=== PATIENT | male | born 1970 | race Caucasian/White ===

== ENCOUNTER 2018-07-06 18:44 | Emergency (ER) | payer OTHER, SELFPAY ==
[2018-07-06 18:47] VITALS: BP 127/85; PULSE 77; RESP 20; TEMP 36.6; O2SAT 98
[2018-07-06 20:26] VITALS: BP 128/92; PULSE 83; RESP 19; O2SAT 99
--- NOTE | 2018-07-06 20:54 | ED.EPISTAXIS ---
HPI - Epistaxis General Chief complaint: Nasal Problem Stated complaint: NON STOP NOSE BLEED Time Seen by Provider: 07/06/18 19:05 Source: patient Mode of arrival: ambulatory Limitations: no limitations History of Present Illness HPI Narrative: 48-year-old male nonsmoker presents with a chief complaint of a spontaneous right-sided nosebleed. He denies any injury and is not dizzy nor weak or lightheaded. He denies the use of blood thinners. He has recently had upper respiratory type symptoms and has been using [id number] cough and cold medicine. He states that it started out of nowhere and bled profusely prior to his arrival. It seems to have improved with the application of pressure and pinching his nostrils. He has no chest pain or shortness of breath. He is not dizzy nor weak or lightheaded. MD complaint: epistaxis Location: right nostril Onset (ago): hour(s) Duration: now resolved Associated symptoms: sinus pain Treatment prior to arrival: nose pinching and head leaned forward Related Data Home Medications Medication Instructions Recorded Confirmed albuterol sulfate 1 puff INHALATION Q4-6H PRN 07/06/18 07/06/18 Allergies Allergy/AdvReac Type Severity Reaction Status Date / Time No Known Drug Allergies Allergy Verified 07/06/18 18:48 Review of Systems Constitutional Denies chills, Denies fever(s), Denies lethargy and Denies weakness Eyes Denies change in vision, Denies eye discharge, Denies irritation and Denies loss of vision ENT Ears, Nose, Mouth, and Throat: Denies change in voice, Reports epistaxis, Denies neck pain and Denies sore throat Cardiovascular Denies chest pain, Denies irregular heart rhythm, Denies lightheadedness, Denies palpitations, Denies dyspnea, Denies dyspnea on exertion and Denies orthopnea Respiratory Denies cough, Denies dyspnea, Denies dyspnea on exertion and Denies wheezing Gastrointestinal Gastrointestinal: Denies abdominal pain, Denies change in bowel habits, Denies diarrhea, Denies nausea and Denies vomiting Genitourinary Denies hematuria, Denies flank pain, Denies urinary incontinence and Denies urinary urgency Musculoskeletal Denies neck pain Integumentary/Breasts Denies pruritus, Denies erythema, Denies rash and Denies wounds Neurologic Denies confusion, Denies loss of vision and Denies weakness Psychiatric Denies anxiety, Denies confusion, Denies depression, Denies homicidal ideation and Denies suicidal ideation Endocrine Denies palpitations Hematologic/Lymphatic Denies easy bruising Allergic/Immunologic Denies wheezing PFSH Social History Smoking Status: Never smoker Social History Smoking Status: Never smoker Exam Narrative Exam Narrative: GEN: AOx3 and in mild distress, pleasant, a bit anxious EYES: Pupils are equal, round, and reactive to light and accommodation. Extraoccular muscles are intact bilaterally. There is no subconjunctival hemorrhage or exudate. ENT: Fresh clots noted right knee air, no active bleeding CHEST: Lungs are clear to auscultation bilaterally and free of wheezes, rales, or rhonchi. Heart rate is regular rhythm, there are no murmurs, clicks, rubs, or gallops. There is no chest wall tenderness. ABD: Abdomen is soft and nontender. There is no guarding or rebound. Bowel sounds are normal in all 4 quadrants. There is no mass or organomegaly. EXT: Full painless ROM of all extremities with no loss of sensation or strength. SKIN: Warm, pink, and dry. No erythema or rash Initial Vital Signs Initial Vital Signs: Vital Signs Temperature 97.9 F 07/06/18 18:47 Pulse Rate 77 07/06/18 18:47 Respiratory Rate 20 07/06/18 18:47 Blood Pressure 127/85 07/06/18 18:47 Pulse Oximetry 98 07/06/18 18:47 Procedures Epistaxis Control Time Out Performed: No Nostril: right Nose Prepped With: oxymetazoline Direct Inspection: yes Clots Removed by: suction Cautery Used: none Course Vital Signs - 8 hr 07/06/18 18:47 07/06/18 20:26 Temperature 97.9 F Pulse Rate 77 83 Respiratory Rate 20 19 Blood Pressure 127/85 Blood Pressure [Left Arm] 128/92 H Pulse Oximetry 98 99 MDM - Epistaxis MDM Narrative Medical decision making narrative: 48-year-old male, no blood thinners, no injury, no active bleeding and nonvisualized site. The observed for the a lengthy period of time and no ongoing bleeding. Okay for discharge. Return precautions given and verbalized understanding by patient Discharge Plan Departure Patient Disposition: Home Clinical Impression: Epistaxis Discharge Date/Time: 07/06/18 21:33 Interventions: ED Discharge Assessment Last Done: 07/06/18 21:33 Instructions: DI for Nosebleed Activity Restrictions/Additional Instructions: *You have been diagnosed with [ acute anterior epistaxis ] *What to do: * do not blow your nose, stick your finger in her nose, or disturb nose for the next 24 hr. If you must sneeze please sneeze out your mouth like we talked about *Follow up with your primary care provider or ENT doctor in 2-3 days, call for an appointment. Let them know you were seen in the Emergency Department and that we ask that you be seen in follow up *Return to ER if you should have any new, worsening or concerning symptoms * if you are bleeding starts again at home please place a portion of a cotton ball in your nostril and squirt some of the Afrin you were given in your nose. Apply the nose clamp and uses a watch or o'clock to time yourself for 15 min. At the end 15 min recheck for bleeding, if you continue to bleed please repeat the process for another 15 min. If at the end of 30 min you still have bleeding you should return to the emergency department Prescriptions: No Action albuterol sulfate 90 mcg/actuation Hfa Aerosol Inhaler 1 puff INHALATION Q4-6H PRN (Reason: dyspnea) RF: 0 Referrals: Jensen Niño MD [Physician] -
== END 2018-07-06 21:33 | disposition home or self-care (01) ==
PROVIDERS: Emergency Provider Emergency Medicine
DX: R04.0 Epistaxis (principal)
CPT/HCPCS: 99282

== ENCOUNTER 2018-07-06 22:00 | Emergency (ER) | payer OTHER, SELFPAY ==
[2018-07-06 22:09] VITALS: BP 142/99; PULSE 115; RESP 18; TEMP 36.7; O2SAT 97; BMI 33.0
[2018-07-06 23:00] VITALS: BP 95/71; PULSE 78; RESP 18; O2SAT 91
[2018-07-06 23:00] LABS: Add Manual Diff / Slide Review NO; Basophils Absolute Auto 100 /uL (0-100); Eosinophils Absolute Auto 500 /uL (0-450); Hemoglobin 16.6 g/dL (13.5-17.5); Lymphocytes Absolute Auto 4400 /uL (1100-4500); Lymphocytes Percent Auto 40.9 % (25-40); Mean Corpuscular HGB Conc 35.2 % (30-36); Mean Corpuscular Hemoglobin 31.6 PG (26-34); Mean Corpuscular Volume 89.8 fL (80-100); Monocytes Absolute Auto 1600 /uL (0-900); Monocytes Percent Auto 14.7 % (3-14); Neutrophils Absolute Auto 4100 /uL (1500-7000); Neutrophils Percent Auto 38.4 % (50-75); Platelet Count 210 X10^3/uL (150-400); Red Blood Cell Count 5.24 X10^6/uL (4.5-5.9); Red Cell Distribution Width 13.3 % (11.6-14.8); White Blood Cell Count 10.7 X10^3/uL (4.5-11.0)
--- NOTE | 2018-07-06 23:03 | PC.NURSE ---
approx 2240 pt c/o going to pass out, appears panicked, bedside, placed on bus driver/monitor, IV placed per order, pt appeared to have vagal response, briefly unresponsive with normal resp rate/depth, returned to baseline mentation
[2018-07-06 23:11] LABS: Blood Urea Nitrogen 25 mg/dL (9-20); Calcium 9.5 mg/dL (8.4-10.2); Carbon Dioxide 20 mmol/L (22-32); Chloride 107 mmol/L (98-107); Estimated Glomerular Filt Rate > 60.0 mL/min (>60); Glucose 128 mg/dL (70-100); HEMOLYSIS 28 (0-50); Potassium 4.5 mmol/L (3.4-5.1); Sodium 139 mmol/L (137-145)
[2018-07-06 23:34] LABS: INR 1.1 (0.9-1.3); Prothrombin Time 12.4 SECONDS (10.1-12.7)
--- NOTE | 2018-07-06 23:36 | ED_ITS ---
HPI - Epistaxis General Chief complaint: Nasal Problem Stated complaint: NOSE BLEED NON STOP Time Seen by Provider: 07/06/18 22:05 Source: patient and family Mode of arrival: ambulatory Limitations: no limitations History of Present Illness HPI Narrative: 48-year-old male nonsmoker returns for the 2nd time this evening with his in the chief complaint of a significant epistaxis in the absence of any injury. He has recently had an upper respiratory infection has been taking cough and cold medicines. He was seen earlier and his bleeding had stopped. There was no evidence of the site or any ongoing bleeding. Soon after his departure he had something that he states felt like it gave way and then he developed significant bleeding, even more intense than the 1st episode. Again, he takes no blood thinners and denies trauma MD complaint: epistaxis Location: right nostril Onset (ago): minute(s) Duration: constant Context: history of previous Associated symptoms: headache and sinus pain Treatment prior to arrival: nose pinching and head leaned forward Related Data Home Medications Medication Instructions Recorded Confirmed albuterol sulfate 1 puff INHALATION Q4-6H PRN 07/06/18 07/06/18 Allergies Allergy/AdvReac Type Severity Reaction Status Date / Time No Known Drug Allergies Allergy Verified 07/06/18 18:48 Review of Systems Constitutional Denies chills, Denies fever(s), Denies lethargy and Denies weakness Eyes Denies change in vision, Denies eye discharge, Denies irritation and Denies loss of vision ENT Ears, Nose, Mouth, and Throat: Denies change in voice, Reports epistaxis, Denies neck pain and Denies sore throat Cardiovascular Denies chest pain, Denies irregular heart rhythm, Denies lightheadedness, Denies palpitations, Denies dyspnea, Denies dyspnea on exertion and Denies orthopnea Respiratory Denies cough, Denies dyspnea, Denies dyspnea on exertion and Denies wheezing Gastrointestinal Gastrointestinal: Denies abdominal pain, Denies change in bowel habits, Denies diarrhea, Denies nausea and Denies vomiting Genitourinary Denies hematuria, Denies flank pain, Denies urinary incontinence and Denies urinary urgency Musculoskeletal Denies neck pain Integumentary/Breasts Denies pruritus, Denies erythema, Denies rash and Denies wounds Neurologic Denies confusion, Denies loss of vision and Denies weakness Psychiatric Denies anxiety, Denies confusion, Denies depression, Denies homicidal ideation a nd Denies suicidal ideation Endocrine Denies palpitations Hematologic/Lymphatic Denies easy bruising Allergic/Immunologic Denies wheezing PFSH Social History Smoking Status: Never smoker Social History Smoking Status: Never smoker Exam Narrative Exam Narrative: GEN: 48-year-old male appears stated age, in obvious distress, significant bleeding, actively pinching his nose EYES: Pupils are equal, round, and reactive to light and accommodation. Extraoccular muscles are intact bilaterally. There is no subconjunctival hemorrhage or exudate. ENT: Significant bright red bleeding from right nostril, site is not visualized. CHEST: Lungs are clear to auscultation bilaterally and free of wheezes, rales, or rhonchi. Heart rate is regular rhythm, there are no murmurs, clicks, rubs, or gallops. There is no chest wall tenderness. ABD: Abdomen is soft and nontender. There is no guarding or rebound. Bowel sounds are normal in all 4 quadrants. There is no mass or organomegaly. EXT: Full painless ROM of all extremities with no loss of sensation or strength. SKIN: Warm, pink, and dry. No erythema or rash Initial Vital Signs Initial Vital Signs: Vital Signs Temperature 98.0 F 07/06/18 22:09 Pulse Rate 115 H 07/06/18 22:09 Respiratory Rate 18 07/06/18 22:09 Blood Pressure 142/99 H 07/06/18 22:09 Pulse Oximetry 97 07/06/18 22:09 Procedures Epistaxis Control Time Out Performed: No Nostril: right Nose Prepped With: oxymetazoline Direct Inspection: unable to visualize Clots Removed by: suction Cautery Used: none Device Inserted: hemostatic balloon Patient Tolerated Procedure: well Course Course Narrative: Hemostasis was achieved with bilateral rhino rockets but after about 15-20 minutes the patient started becoming quite anxious. He states he tried to take a breath in his nose, which is normal for him and being unable to do so made him panicky. He started feeling dizzy, weak and lightheaded and insisted the nasal balloons were removed. He was near syncopal and maybe even syncopal for a brief period of time. IV was placed and blood was drawn, he quickly returned to baseline after an apparent vagal event Orders Ordered: ED Orders 07/06/18 22:42 EKG-12 Lead Stat 07/06/18 22:49 Basic Metabolic Panel Stat Complete Blood Count AUTO DIFF Stat Type and Screen Stat 07/06/18 23:20 Partial Thromboplastin Time Stat Prothrombin Time INR Stat Discontinued Medications Sodium Chloride (Normal Saline 0.9%) 1,000 mls @ 1,000 mls/hr IV BOLUS ONE Stop: 07/07/18 02:51 Last Infusion: 07/07/18 01:57 Dose: 0 mls/hr Admin: 07/07/18 00:00 Dose: 1,000 mls/hr Reevaluation(s) Reevaluation #1: Patient observed for nearly 2 hr after initial event. He remained calm with stable vital signs and unremarkable labs. Consultations Consultation #1: Case discussed with ear nose and throat and we agree that the most appropriate course of action is replacement of rhino rocket and follow up in 3 days, however patient refuses this despite discussions of risks and benefits. ENT suggests that a backup plan would be to instill a cotton swab lab other day and petroleum jelly to occlude the airway for the nostril and allow the blood vessel to reestablish itself. Patient accepts this alternative and acknowledges that if he returns we will need to replace rhino rockets. Vital Signs - 8 hr 07/06/18 22:09 07/06/18 23:00 07/07/18 00:38 Temperature 98.0 F Pulse Rate 115 H 78 86 Respiratory Rate 18 18 15 Blood Pressure 142/99 H Blood Pressure [Left Arm] 95/71 130/80 Pulse Oximetry 97 91 100 07/07/18 01:58 Temperature Pulse Rate 70 Respiratory Rate 16 Blood Pressure 124/80 Blood Pressure [Left Arm] Pulse Oximetry 98 MDM - Epistaxis Lab Data Result diagrams: 07/06/18 22:49 07/06/18 22:49 Lab Results 07/06/18 07/06/18 07/06/18 Range/Units 22:49 22:49 22:49 WBC 10.7 (4.5-11.0) X10^3/uL RBC 5.24 (4.5-5.9) X10^6/uL Hgb 16.6 (13.5-17.5) g/dL Hct 47.0 (41-53) % MCV 89.8 (80-100) fL MCH 31.6 (26-34) PG MCHC 35.2 (30-36) % RDW 13.3 (11.6-14.8) % Plt Count 210 (150-400) X10^3/uL Neut % (Auto) 38.4 L (50-75) % Lymph % (Auto) 40.9 H (25-40) % Shasta % (Auto) 14.7 H (3-14) % Eos % (Auto) 5.0 H (2-4) % Baso % (Auto) 1.0 (0-2) % Neut # (Auto) 4100 (5749-5800) /uL Lymph # (Auto) 4400 (6388-2839) /uL Shasta # (Auto) 1600 H (0-900) /uL Eos # (Auto) 500 H (0-450) /uL Baso # (Auto) 100 (0-100) /uL PT (10.1-12.7) SECONDS INR (0.9-1.3) APTT (26.4-36.2) SECONDS Sodium 139 (137-145) mmol/L Potassium 4.5 (3.4-5.1) mmol/L Chloride 107 (98-107) mmol/L Carbon Dioxide 20 L (22-32) mmol/L BUN 25 H (9-20) mg/dL Creatinine 1.00 (0.66-1.25) mg/dL Estimated GFR > 60.0 (>60) mL/min BUN/Creatinine Ratio 25.0 H (6-22) Glucose 128 H (70-100) mg/dL Calcium 9.5 (8.4-10.2) mg/dL Blood Type A Positive Antibody Screen Negative 07/06/18 Range/Units 23:20 WBC (4.5-11.0) X10^3/uL RBC (4.5-5.9) X10^6/uL Hgb (13.5-17.5) g/dL Hct (41-53) % MCV (80-100) fL MCH (26-34) PG MCHC (30-36) % RDW (11.6-14.8) % Plt Count (150-400) X10^3/uL Neut % (Auto) (50-75) % Lymph % (Auto) (25-40) % Shasta % (Auto) (3-14) % Eos % (Auto) (2-4) % Baso % (Auto) (0-2) % Neut # (Auto) (3257-7987) /uL Lymph # (Auto) (0265-0281) /uL Shasta # (Auto) (0-900) /uL Eos # (Auto) (0-450) /uL Baso # (Auto) (0-100) /uL PT 12.4 (10.1-12.7) SECONDS INR 1.1 (0.9-1.3) APTT 23 L (26.4-36.2) SECONDS Sodium (137-145) mmol/L Potassium (3.4-5.1) mmol/L Chloride (98-107) mmol/L Carbon Dioxide (22-32) mmol/L BUN (9-20) mg/dL Creatinine (0.66-1.25) mg/dL Estimated GFR (>60) mL/min BUN/Creatinine Ratio (6-22) Glucose (70-100) mg/dL Calcium (8.4-10.2) mg/dL Blood Type Antibody Screen Discharge Plan Departure Patient Disposition: Home Clinical Impression: Epistaxis Discharge Date/Time: 07/07/18 02:02 Interventions: ED Discharge Assessment Last Done: 07/07/18 01:58 Instructions: DI for Nosebleed Activity Restrictions/Additional Instructions: *You have been diagnosed with [ acute anterior epistaxis ] *What to do: * do not blow your nose, stick your finger in her nose, or disturb nose for the next 24 hr. If you must sneeze please sneeze out your mouth like we talked about *Follow up with your primary care provider or ENT doctor in 2-3 days, call for an appointment. Let them know you were seen in the Emergency Department and that we ask that you be seen in follow up *Return to ER if you should have any new, worsening or concerning symptoms * if you are bleeding starts again at home please place a portion of a cotton ball in your nostril and squirt some of the Afrin you were given in your nose. Apply the nose clamp and uses a watch or o'clock to time yourself for 15 min. At the end 15 min recheck for bleeding, if you continue to bleed please repeat the process for another 15 min. If at the end of 30 min you still have bleeding you should return to the emergency department Prescriptions: No Action albuterol sulfate 90 mcg/actuation Hfa Aerosol Inhaler 1 puff INHALATION Q4-6H PRN (Reason: dyspnea) RF: 0 Referrals: Cedric Suero MD [Physician] -
[2018-07-06 23:37] LABS: PTT Partial Thromboplastin Tim 23 SECONDS (26.4-36.2)
[2018-07-07] MEDS: SODIUM CHLORIDE 0.9% 1,000 ML 1000 ML IV
[2018-07-07 00:38] VITALS: BP 130/80; PULSE 86; RESP 15; O2SAT 100
[2018-07-07 01:58] VITALS: BP 124/80; PULSE 70; RESP 16; O2SAT 98
== END 2018-07-07 02:02 | disposition home or self-care (01) ==
PROVIDERS: Emergency Provider Emergency Medicine
DX: R04.0 Epistaxis (principal)
CPT/HCPCS: 30905; 36591; 80048; 85025; 85610; 85730; 86850; 86900; 86901; 93005; 93010; 96360; 96361; 99282; 99283; 99284

== ENCOUNTER 2019-06-20 10:04 | Emergency (ER) | payer OTHER, SELFPAY ==
[2019-06-20 10:42] VITALS: BP 144/99; PULSE 79; RESP 18; TEMP 36.8; O2SAT 97; BMI 33.0
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
== END 2019-06-20 12:27 | disposition home or self-care (01) ==
PROVIDERS: Emergency Provider Nurse Practitioner; PCP Physician Assistant
DX: L25.3 Unspecified contact dermatitis due to other chemical products (principal)
CPT/HCPCS: 99282

== ENCOUNTER → 2020-02-21 13:18 | Outpatient (CLI) | payer OTHER, SELFPAY ==
[2020-02-22 10:23] LABS: COVID19 Sendout Not Detected (Not Detect)
== END ==
PROVIDERS: PCP Physician Assistant; Visit Provider Physician Assistant
DX: Z11.59 Encounter for screening for other viral diseases (principal)
CPT/HCPCS: 87635

== ENCOUNTER 2020-02-23 09:03 | Day surgery (SDC) | payer OTHER, SELFPAY ==
--- NOTE | 2020-02-23 | PATH_ITS ---
[facility] Accession Number: [id number] . 01 Material submitted: . PART A: cecum - CECAL POLYPS PART B: colon - ASCENDING COLON POLYPS . 01 Clinical history: . A: CECAL POLYPS (2) B: ASCENDING COLON POLYPS (2) . 02 Diagnosis: A. Cecum, Polyps: Tubular adenoma x2. . B. Ascending Colon, Polyps: Tubular adenoma x2. MRV 02/25/2020 1032 Local . 02 Electronically signed: . Adolfo Mireles MD, PhD, Pathologist NPI- [id number] . 01 Gross description: . A. Received in formalin, labeled cecal polyps, and consists of two weinstein fragments of soft tissue measuring 0.6 x 0.5 x 0.2 cm in aggregate. The specimen is entirely submitted in cassette A1. B. Received in formalin, labeled ascending colon polyps, and consists of two weinstein-pink fragments of soft tissue measuring 0.5 x 0.4 x 0.2 cm in aggregate. The specimen is entirely submitted in cassette B1. ([id number]) /MRV 02/24/2020 1104 Local . 02 Pathologist provided ICD-10: D12.0, D12.2 . 02 CPT . 752194, [id number] Performed at: 01 [facility] [address], [place], [place] [id number] MD Marek Gonzales MD Phone: [phone] Performed at: 02 [facility] [address] [place], [place] [id number] MD Wanda Michele MD Phone: [phone]
--- NOTE | 2020-02-23 07:59 | PM.HP.1 ---
History of Present Illness History of Present Illness Date Patient Seen: 02/23/20 Chief complaint: SCREENING COLONOSCOPY Narrative: 50-year-old male here for colon cancer screening. There is no family history of colon cancer or colon polyps. Patient History Medical History (Updated 07/05/19 @ 00:00 by ) No significant medical problems (Acute) Family & Social History Tobacco & Substance use: Smoking Status Never smoker alcohol intake frequency a few times a month Substance Use Type does not use Meds Home Medications and Allergies Home Medications Medication Instructions Recorded Confirmed Type albuterol sulfate 1 puff INHALATION Q4-6H PRN 07/06/18 02/23/20 History Allergies Allergy/AdvReac Type Severity Reaction Status Date / Time No Known Drug Allergies Allergy Verified 02/23/20 09:33 Exam Narrative Exam Narrative: General: Patient is obese, not in apparent distress Cardiovascular: Regular rate and rhythm, no murmurs, rubs, or gallops; no evidence of edema; no palpable abdominal aortic aneurysm Gastrointestinal: Normoactive bowel sounds, soft, nontender, nondistended, no rebound tenderness, no hepatosplenomegaly, no evidence of hernia Assessment & Plan Assessment & Plan narrative: 50-year-old male who is at average risk for colon cancer presents for screening by means of colonoscopy Regarding the procedure(s), the risks and potential complications, benefits, and alternatives (including not doing the procedure) were discussed with the patient. The risks include but are not limited to bleeding, splenic injury, infection, perforation which may require surgical intervention, missed lesions, and adverse reactions to sedative medicines. After a question and answer period, the patient agreed to proceed with the procedure(s) and gives informed consent.
[2020-02-23] MEDS: SODIUM CHLORIDE 0.9% 1,000 ML 70 ML IV (09:15)
[2020-02-23 09:21] VITALS: BP 123/79; PULSE 61; RESP 16; TEMP 36.6; O2SAT 96
--- NOTE | 2020-02-23 09:43 | P.OP.ENDO_ITS ---
Operative Date/Time/Diagnoses Date of procedure: 02/23/20 Procedure Notes Procedure in detail: Surgeon: Michael Orta MD Procedure: Colonoscopy with polypectomy Preoperative diagnosis: Colon cancer screening Postoperative diagnosis: Colon polyps x4 status post polypectomy, grade 2 i nternal hemorrhoid Medications: Conscious sedation using 4 mg IV of Midazolam and 100 mcg IV of Fentanyl Preanesthesia Assessment An H and P was performed/updated and the Px?s ASA class is 2. The procedure was discussed in detail with the patient. The potential risks and complications including infection, bleeding, missed lesions, perforation, need for surgery in case of perforation, prolonged hospital stay, and were explained. A brief question and answer period was allotted and once all questions were answered, informed consent was obtained. The patient was brought back to the procedure room and placed on standard monitoring. The patient?s vital signs were monitored continuously throughout the entire procedure. Prior to starting, a timeout was performed to confirm the patient?s identity, allergies, medications, and procedure. Procedure in detail The patient was placed in left lateral decubitus position and once adequate sedation was obtained a KELLY was performed. The digital rectal examination did not reveal any palpable lesions. The tip of the colonoscope was placed in the anal canal and advanced without difficulty all the way to the cecum which was identified by the appendiceal orifice and the ileocecal valve. The terminal ileum was intubated for a distance of 5 cm from the ileocecal valve and the mucosa was normal. The scope was brought back into the cecum and careful examination of all hinds of the colon was performed with irrigation of any residual stool. In the cecum, there was note of a 2 mm sessile polyp which was removed by means of cold Jumbo forceps. Resection and retrieval was complete with minimal bleeding In the cecum, there was note of a 4 mm sessile polyp which was removed by means of cold snare. Resection and retrieval was complete with minimal bleeding In the ascending colon, there was note of a 2 mm sessile polyp which was removed by means of cold Jumbo forceps. Resection and retrieval was complete with minimal bleeding In the ascending colon, there was note of a 4 mm sessile polyp which was removed by means of cold Jumbo forceps. Resection and retrieval was complete with minimal bleeding Retroflexion was performed in the rectum which revealed grade 2 internal hemorrhoids The patient tolerated the procedure well and will be brought back to the recovery area to be discharged once criteria are met. The prep was judged to be good and adequate to identify polyps less than 5 mm. The withdrawal time was 11 minutes. The total physician intraservice time was 16 minutes. Complications There were no complications and estimated blood loss was minimal. Recommendations: Resume previous diet Continue outPx medications Follow up pathology results Repeat colonoscopy in 3 years, this may change depending on pathology results An emergency contact number was given to the patient for any complications related to the procedure
[2020-02-23] MEDS: fentaNYL 250 MCG/5 ML INJ IV (10:05)
[2020-02-23] MEDS: MIDAZOLAM 5 MG/5 ML VIAL IV (10:05)
[2020-02-23 10:07] VITALS: BP 117/80; PULSE 64; RESP 12; TEMP 36.3; O2SAT 94
[2020-02-23 10:12] VITALS: BP 116/75; PULSE 71; RESP 11; O2SAT 97
[2020-02-23 10:18] VITALS: BP 117/79; PULSE 65; RESP 16; TEMP 36.4; O2SAT 97
[2020-02-23 10:21] VITALS: BP 121/79; PULSE 66; RESP 17; TEMP 36.4; O2SAT 97
[2020-02-23 10:29] VITALS: BP 127/83; PULSE 68; RESP 16; TEMP 36.6; O2SAT 97
--- NOTE | 2020-02-23 10:38 | SUR.PHASEII ---
pt given d/c instructions. pt states he understands d/c instructions. pt d/mireya with his .
== END 2020-02-23 10:39 | disposition home or self-care (01) ==
PROVIDERS: PCP Physician Assistant; Referring Provider Internal Medicine Gastroenterology; Visit Provider Internal Medicine Gastroenterology
PROC: 0DJD8ZZ Inspection of Lower Intestinal Tract, Via Natural or Artificial Opening Endoscopic (ICD-10-PCS; CPT 45378; principal; 2020-02-23 10:00)
DX: Z12.11 Encounter for screening for malignant neoplasm of colon (principal); K64.1 Second degree hemorrhoids; D12.0 Benign neoplasm of cecum; D12.3 Benign neoplasm of transverse colon
CPT/HCPCS: 45385; 45380; J2250; J3010

== ENCOUNTER → 2020-07-25 06:49 | Outpatient (CLI) | payer OTHER, SELFPAY | PROVIDERS: Referring Provider Physician Assistant; Visit Provider Physician Assistant | DX: M25.511 Pain in right shoulder (principal); Z53.20 Procedure and treatment not carried out because of patient's decision for unspecified reasons ==

== ENCOUNTER → 2022-05-29 09:46 | Outpatient (CLI) | payer OTHER, SELFPAY ==
[2022-05-29 10:30] LABS: Add Manual Diff / Slide Review NO; Basophils Absolute Auto 0 /uL (0-100); Basophils Percent Auto 0.6 % (0-2); Eosinophils Absolute Auto 100 /uL (0-450); Eosinophils Percent Auto 1.8 % (2-4); Hematocrit 46.3 % (41-53); Lymphocytes Absolute Auto 1800 /uL (1100-4500); Lymphocytes Percent Auto 32.7 % (25-40); Mean Corpuscular HGB Conc 34.6 % (30-36); Mean Corpuscular Hemoglobin 30.7 PG (26-34); Mean Corpuscular Volume 88.6 fL (80-100); Monocytes Absolute Auto 500 /uL (0-900); Monocytes Percent Auto 8.4 % (3-14); Neutrophils Absolute Auto 3100 /uL (1500-7000); Neutrophils Percent Auto 56.5 % (50-75); Platelet Count 186 X10^3/uL (150-400); Red Blood Cell Count 5.22 X10^6/uL (4.5-5.9); White Blood Cell Count 5.5 X10^3/uL (4.5-11.0)
[2022-05-29 10:36] LABS: Hemoglobin A1C% w Est Avg Glu 5.3 % (4.0-6.0)
[2022-05-29 10:50] LABS: Alanine Aminotransferase 49 IU/L (<50); Alkaline Phosphatase 48 U/L (38-126); Aspartate Aminotransferase 32 IU/L (17-59); Bilirubin Total 1.1 mg/dL (0.2-1.3); Blood Urea Nitrogen 18 mg/dL (9-20); Calcium 9.1 mg/dL (8.4-10.2); Carbon Dioxide 29 mmol/L (22-32); Chloride 103 mmol/L (98-107); Cholesterol 230 mg/dL (140-199); Estimated Glomerular Filt Rate > 60 mL/min (>60); Glucose 86 mg/dL (70-100); HDL Cholesterol 46 mg/dL (40-60); LDL Cholesterol Calculated 160 mg/dL (<100); Potassium 4.3 mmol/L (3.4-5.1); Sodium 139 mmol/L (137-145); Total Protein 8.1 g/dL (6.3-8.2); Triglycerides 118 mg/dL (35-150)
[2022-05-29 11:21] LABS: Prostate Specific Antigen 3.28 ng/mL (0.10-4.00)
[2022-05-31 16:44] LABS: Albumin 4.6 g/dL (3.5-5.0); Albumin Globulin Ratio 1.3 (1.0-2.8); Globulin 3.5 g/dL (1.7-4.1); HEMOLYSIS 17 (0-50)
== END ==
PROVIDERS: PCP Family Medicine; Referring Provider Family Medicine; Visit Provider Family Medicine
DX: Z00.00 Encounter for general adult medical examination without abnormal findings (principal); R03.0 Elevated blood-pressure reading, without diagnosis of hypertension
CPT/HCPCS: 36415; 80053; 80061; 83036; 84153; 85025

== ENCOUNTER → 2023-06-03 13:52 | Outpatient (CLI) | payer OTHER, SELFPAY ==
[2023-06-03 14:18] LABS: Add Manual Diff / Slide Review NO; Basophils Absolute Auto 0 /uL (0-100); Basophils Percent Auto 0.6 % (0-2); Eosinophils Absolute Auto 100 /uL (0-450); Eosinophils Percent Auto 1.4 % (2-4); Hematocrit 46.3 % (41-53); Hemoglobin 16.4 g/dL (13.5-17.5); Lymphocytes Absolute Auto 2300 /uL (1100-4500); Lymphocytes Percent Auto 32.2 % (25-40); Mean Corpuscular HGB Conc 35.5 % (30-36); Mean Corpuscular Hemoglobin 31.4 PG (26-34); Mean Corpuscular Volume 88.5 fL (80-100); Monocytes Absolute Auto 600 /uL (0-900); Monocytes Percent Auto 7.9 % (3-14); Neutrophils Absolute Auto 4100 /uL (1500-7000); Neutrophils Percent Auto 57.9 % (50-75); Platelet Count 217 X10^3/uL (150-400); Red Blood Cell Count 5.23 X10^6/uL (4.5-5.9); Red Cell Distribution Width 13.3 % (11.6-14.8); White Blood Cell Count 7.1 X10^3/uL (4.5-11.0)
[2023-06-03 14:27] LABS: Hemoglobin A1C% w Est Avg Glu 5.3 % (4.0-6.0)
[2023-06-03 14:48] LABS: Alanine Aminotransferase 52 IU/L (<50); Albumin 4.5 g/dL (3.5-5.0); Albumin Globulin Ratio 1.4 (1.0-2.8); Alkaline Phosphatase 48 U/L (38-126); Aspartate Aminotransferase 36 IU/L (17-59); BUN Creatinine Ratio 20.9 (6-22); Bilirubin Total 1.2 mg/dL (0.2-1.3); Blood Urea Nitrogen 18 mg/dL (9-20); Calcium 9.9 mg/dL (8.4-10.2); Carbon Dioxide 27 mmol/L (22-32); Chloride 102 mmol/L (98-107); Cholesterol 236 mg/dL (140-199); Estimated Glomerular Filt Rate > 60 mL/min (>60); Globulin 3.3 g/dL (1.7-4.1); Glucose 88 mg/dL (70-100); HDL Cholesterol 55 mg/dL (40-60); HEMOLYSIS < 15 (0-50); LDL Cholesterol Calculated 164 mg/dL (<100); Potassium 4.6 mmol/L (3.4-5.1); Sodium 137 mmol/L (137-145); Total Protein 7.8 g/dL (6.3-8.2); Triglycerides 83 mg/dL (35-150)
[2023-06-03 15:14] LABS: Prostate Specific Antigen Scrn 3.26 ng/mL (0.1-4.0)
[2023-06-05 17:43] LABS: HIV 1 & 2 Ab/Ag 4th Gen Combo NEGATIVE (NEGATIVE); Hep C Virus Ab w/Reflex Quant NEGATIVE s/c (NEGATIVE)
== END ==
LOC: LAB 13:52
PROVIDERS: PCP Family Medicine; Referring Provider Family Medicine; Visit Provider Family Medicine
DX: Z00.00 Encounter for general adult medical examination without abnormal findings (principal); E78.5 Hyperlipidemia, unspecified; Z12.5 Encounter for screening for malignant neoplasm of prostate
CPT/HCPCS: 36415; 80053; 80061; 83036; 85025; 86803; 87389; G0103

== ENCOUNTER 2023-10-02 12:28 | Day surgery (SDC) | payer OTHER, SELFPAY ==
[2023-10-02] VITALS (7 sets, daily range): BP systolic 117–132; BP diastolic 80–97; PULSE 64–77; RESP 15–16; TEMP 36.2–36.5; O2SAT 94–98
--- NOTE | 2023-10-02 14:33 | PM.HP.1 ---
History of Present Illness History of Present Illness Date Patient Seen: 10/02/23 Time Patient Seen: 14:33 Chief complaint: Screening Colonoscopy Narrative: Mahamed is a 53 year old man who had a colonoscopy with Dr. Orta in 2019 and 4 small polyps were removed that came back as tubular adenomas. No family history of colon cancer. [facility] Medical History (Updated 10/02/23 @ 14:34 by Brain Moreno MD) Hyperlipidemia Obesity (BMI 30-39.9) Asthma No significant medical problems Surgical History (Updated 06/08/22 @ 21:55 by Elin Mazariegos) Anesthesia History of vasectomy History of shoulder surgery Family History (Updated 06/08/22 @ 21:56 by Elin Mazariegos) Father Cancer Social History household members: spouse Smoking Status: Never smoker Meds Home Medications and Allergies Home Medications Medication Instructions Recorded Confirmed Type fluticasone propion-salmeterol inhalation 05/29/22 06/03/23 History [Advair Diskus] albuterol sulfate 90 mcg/actuation 1 - 2 puff inhalation Q4-6H PRN 10/21/22 06/03/23 Rx aerosol inhaler dyspnea #8.5 grams phentermine 37.5 mg tablet 37.5 mg PO DAILY #30 tabs 07/03/23 07/03/23 Rx sodium,potassium,mag sulfates 17.5 See Rx Instructions PO .COMPLEX 09/15/23 Rx gram-3.13 gram-1.6 gram oral soln #354 mL (Suprep Bowel Prep Kit) Subcutaneous Supplies Kit #12 ea 09/22/23 09/22/23 Rx semaglutide See Rx Instructions SUBCUT .weekly 09/30/23 Rx #6 mL Allergies Allergy/AdvReac Type Severity Reaction Status Date / Time No Known Drug Allergies Allergy Verified 06/03/23 13:09 Exam Const General: No acute distress Resp Effort & Inspection: normal respiratory effort Assessment & Plan Assessment and plan (1) History of colon polyps: Status: Acute Plan We discussed risks and benefits of colonoscopy for colon cancer screening and a history of polyps and he would like to proceed.
[2023-10-02] MEDS: LACTATED RINGERS 1,000 ML 42 ML IV (14:50)
--- NOTE | 2023-10-02 15:24 | PM.OP.COLON ---
Operative Date/Time/Diagnoses Date of procedure: 10/02/23 Time of procedure: 15:24 Pre-op diagnosis: History of colon polyps Post-op diagnosis: same Procedure & Clinicians Study performed: Colonoscopy Same procedure as scheduled: Yes Surgeon: Brain Moreno Procedure Notes Procedure in detail: Surgeon: Brain Moreno MD Anesthesia: Lauren Martinez MD Procedure: The patient was brought to the endoscopy suite, placed in left lateral decubitus position. The patient was connected to monitoring devices. A time-out was performed. Sedation was administered. Once the patient was adequately sedated, a digital rectal exam was performed and was normal. The scope was then inserted and advanced to the cecum there was a thick viscous bile coating the proximal colon that could not be irrigated away. The mucosa was inspected as thoroughly as possible and no obvious large masses were found. The scope was straightened and removed. The patient was awakened and brought to recovery. Scope withdrawal time: Not applicable Sedation time: 12 minutes EBL: None Findings: Inadequate prep, incomplete colonoscopy Post-procedure Disposition: PACU
== END 2023-10-02 16:02 | disposition home or self-care (01) ==
PROVIDERS: PCP Family Medicine; Referring Provider Surgery; Visit Provider Surgery
PROC: 0DJD8ZZ Inspection of Lower Intestinal Tract, Via Natural or Artificial Opening Endoscopic (ICD-10-PCS; CPT 45378; principal; 2023-10-02 14:15)
DX: Z12.11 Encounter for screening for malignant neoplasm of colon (principal); Z86.010 Personal history of colon polyps; Z53.09 Procedure and treatment not carried out because of other contraindication; E66.9 Obesity, unspecified; E78.5 Hyperlipidemia, unspecified
CPT/HCPCS: 45378; 36415; 80061; J2704

== ENCOUNTER → 2023-10-02 12:30 | Outpatient (CLI) | payer OTHER, SELFPAY ==
[2023-10-02 15:03] LABS: Cholesterol 192 mg/dL (140-199); HDL Cholesterol 49 mg/dL (40-60); LDL Cholesterol Calculated 111 mg/dL (<100); Triglycerides 158 mg/dL (35-150)
== END ==
LOC: LAB 12:30
PROVIDERS: PCP Family Medicine; Referring Provider Family Medicine; Visit Provider Family Medicine
DX: E66.9 Obesity, unspecified (principal); E78.5 Hyperlipidemia, unspecified
CPT/HCPCS: 36415; 80061

== ENCOUNTER 2023-12-21 09:00 | Emergency (ER) | payer OTHER, SELFPAY ==
[2023-12-21 09:11] VITALS: BP 156/89; PULSE 81; RESP 16; TEMP 36.6; O2SAT 96; BMI 34.2
--- NOTE | 2023-12-21 09:26 | DI.RAD.S_ITS ---
PROCEDURE: XR FINGER RT MIN 2V INDICATIONS: injury/puncture from metal TECHNIQUE: AP hand, 2 views of the 2nd finger(s) acquired. COMPARISON: None. FINDINGS: Bones: No fractures or dislocations. No suspicious bony lesions. Soft tissues: No suspicious soft tissue calcifications. Mild soft tissue swelling about the 2nd digit without radiopaque foreign body. IMPRESSION: No acute bony abnormality or radiopaque foreign body. Dictated by: Mary Jane Dc M.D. on 12/21/2023 at 9:06 Approved by: Mary Jane Dc M.D. on 12/21/2023 at 9:07
[2023-12-21] MEDS: TET,DIPH,PERTUSS(ACELL),VAC/PF 0.5 ML SYRINGE IM (09:33)
--- NOTE | 2023-12-21 09:43 | PC.NURSE ---
Pt states yesterday he was working on the boat when he cut his finger with metal object; finger promptly washed and antibiotic ointment w/ bandaid was placed by family member. Pt came in today due to increased swelling and possible adipose tissue coming from cut. Cut noted on right pointer finger approx 1 cm at tip.
--- NOTE | 2023-12-21 10:26 | ED_ITS ---
HPI - Extremity Injury (Upper) General Chief Complaint: Extremity Injury, Upper Stated Complaint: Metal In right index finger Time Seen by Provider: 12/21/23 09:53 Source: patient Mode of arrival: Ambulatory History of Present Illness HPI narrative: Patient is a 53-year-old male on Ozempic for weight loss presents today with right index finger injury. He was working on a boat a piece of metal got into his finger yesterday. He has a small laceration. No numbness tingling he has got a little bit of swelling and decreased range of movement of no redness. He is right-hand dominant tetanus needs updating. Related Data Home Medications Medication Instructions Recorded Confirmed fluticasone propion-salmeterol inhalation 05/29/22 06/03/23 [Advair Diskus] Previous Rx's Medication Instructions Recorded albuterol sulfate 90 mcg/actuation 1 - 2 puff inhalation Q4-6H PRN 10/21/22 aerosol inhaler dyspnea #8.5 grams phentermine 37.5 mg tablet 37.5 mg PO DAILY #30 tabs 07/03/23 Subcutaneous Supplies Kit #12 ea 09/22/23 semaglutide See Rx Instructions SUBCUT .weekly 09/30/23 #6 mL Allergies Allergy/AdvReac Type Severity Reaction Status Date / Time No Known Drug Allergies Allergy Verified 12/21/23 09:18 Patient History Medical History (Updated 12/21/23 @ 10:31 by Antonia Malin DO) Hyperlipidemia Obesity (BMI 30-39.9) Asthma No significant medical problems Surgical History (Updated 06/08/22 @ 21:55 by Elin Mazariegos) Anesthesia History of vasectomy History of shoulder surgery Family History (Updated 06/08/22 @ 21:56 by Elin Mazariegos) Father Cancer Social History household members: spouse Smoking Status: Never smoker Smoking Status: Never smoker alcohol intake frequency: holidays/special occasions only Substance Use Type: does not use Exam Initial Vital Signs Initial Vital Signs: Vital Signs Temperature 97.9 F 12/21/23 09:11 Pulse Rate 81 12/21/23 09:11 Respiratory Rate 16 12/21/23 09:11 Blood Pressure 156/89 H 12/21/23 09:11 Pulse Oximetry 96 12/21/23 09:11 Oxygen Delivery Method Room Air 12/21/23 09:11 GENERAL: Well-appearing, well-nourished and in no acute distress. CARDIOVASCULAR: peripheral pulses in tact, cap refill <2 sec RESPIRATORY: No respiratory distress, speaks in full sentences without difficulty EXTREMITIES: Normal range of motion, no clubbing or edema. Neurovascularly intact NEUROLOGICAL: Cranial nerves II through XII grossly intact. Normal gait and speech. SKIN: Right index finger thumb side 1.5 cm laceration mild swelling no obvious foreign body cap refill less than 2 seconds Course Orders Ordered: ED Orders 12/21/23 09:26 XR finger RT min 2V Stat Discontinued Medications Diphtheria/Tetanus/Acell Pertussis (Tet,Diph,Pertuss(Acell),Vac/Pf 0.5 Ml Syringe) 0.5 ml IM .ONCE ONE Stop: 12/21/23 09:28 Last Admin: 12/21/23 09:33 Dose: 0.5 ml Documented By: RONNA Vital Signs Vital signs: Vital Signs - 8 hr 12/21/23 09:11 Temperature 97.9 F Pulse Rate 81 Respiratory Rate 16 Blood Pressure 156/89 H Pulse Oximetry 96 Oxygen Delivery Method Room Air MDM - Extremity Injury (Upper) Imaging Data Extremity x-ray #1: Radiologist's Impression: PROCEDURE: XR FINGER RT MIN 2V INDICATIONS: injury/puncture from metal TECHNIQUE: AP hand, 2 views of the 2nd finger(s) acquired. COMPARISON: None. FINDINGS: Bones: No fractures or dislocations. No suspicious bony lesions. Soft tissues: No suspicious soft tissue calcifications. Mild soft tissue swelling about the 2nd digit without radiopaque foreign body. IMPRESSION: No acute bony abnormality or radiopaque foreign body. Dictated by: Mary Jane Dc M.D. on 12/21/2023 at 9:06 [facility] Narrative Medical decision making narrative: Patient 53-year-old healthy male who presents with right index finger laceration that happened yesterday. X-ray is negative for retained foreign body. Overall it does not appear infected at this time. No suture indicated. Discussed with him supportive care. Discharge Plan Departure Patient Disposition: Home Clinical Impression: Laceration of right index finger Instructions: DI for Laceration Repair Activity Restrictions/Additional Instructions: *You have been diagnosed with index finger laceration *What to do: Keep clean with soap and water antibiotic ointment elevate and ice as needed *Continue to take medications as directed Tylenol or Motrin as needed for pain *Follow up with your primary care provider in 2-3 days or call [phone] *Return to ER if you should have redness swelling fever signs of infection or any new, worsening or concerning symptoms Prescriptions: No Action albuterol sulfate 90 mcg/actuation HFA aerosol inhaler 1 - 2 puff INHALATION Q4-6H PRN (Reason: dyspnea) Qty: 8.5 11RF semaglutide 1 mg/mL See Rx Instructions SUBCUT .weekly Qty: 6 5RF Rx Instructions: 0.25 mg subcut weekly x 4 weeks, then 0.5 mg subcut weekly fluticasone propion-salmeterol [Advair Diskus] inhalation phentermine 37.5 mg tablet 37.5 mg PO DAILY Qty: 30 2RF Hold Instructions: Home Medication placed on hold at Doctor's office Rx Instructions: must administer 30 minutes before or 1-2 hours after breakfast (DME) Subcutaneous Supplies Kit See Rx Instructions .ROUTE .MEDSUPPLY Qty: 12 3RF Rx Instructions: As directed with semaglutide Referrals: Gustavo Escobar DO [Primary Care Provider] - Stand Alone Forms: Patient Portal/API
== END 2023-12-21 10:45 | disposition home or self-care (01) ==
PROVIDERS: Emergency Provider Emergency Medicine; PCP Family Medicine
DX: S61.210A Laceration without foreign body of right index finger without damage to nail, initial encounter (principal); W26.9XXA Contact with unspecified sharp object(s), initial encounter; Z23 Encounter for immunization
CPT/HCPCS: 73140; 90471; 99283; 90715

== ENCOUNTER 2024-01-29 09:34 | Day surgery (SDC) | payer OTHER, SELFPAY ==
[2024-01-29] MEDS: LACTATED RINGERS 1,000 ML 42 ML IV (10:08)
[2024-01-29 10:14] VITALS: BP 125/83; PULSE 73; RESP 18; TEMP 36.5; O2SAT 97
--- NOTE | 2024-01-29 10:49 | PM.HP.1 ---
History of Present Illness History of Present Illness Date Patient Seen: 01/29/24 Time Patient Seen: 10:49 Chief complaint: Screening Colonoscopy Narrative: Mahamed is a 53-year-old man with a history of polyps. He did attempted colonoscopy here a few months ago but his prep was inadequate. He has repeated the prep and this time it has gone as planned. [facility] Medical History (Updated 01/05/24 @ 00:00 by ) Hyperlipidemia Obesity (BMI 30-39.9) Asthma No significant medical problems Surgical History (Updated 06/08/22 @ 21:55 by Elin Mazariegos) Anesthesia History of vasectomy History of shoulder surgery Family History (Updated 06/08/22 @ 21:56 by Elin Mazariegos) Father Cancer Social History household members: spouse Smoking Status: Never smoker alcohol intake: current Meds Home Medications and Allergies Home Medications Medication Instructions Recorded Confirmed Type fluticasone propion-salmeterol inhalation 05/29/22 06/03/23 History [Advair Diskus] albuterol sulfate 90 mcg/actuation 1 - 2 puff inhalation Q4-6H PRN 10/21/22 01/29/24 Rx aerosol inhaler dyspnea #8.5 grams Subcutaneous Supplies Kit #12 ea 09/22/23 09/22/23 Rx semaglutide See Rx Instructions SUBCUT .weekly 09/30/23 01/29/24 Rx #6 mL Allergies Allergy/AdvReac Type Severity Reaction Status Date / Time No Known Drug Allergies Allergy Verified 01/29/24 10:05 Exam Vital Signs (past 8 hours): - 01/29/24 10:14 Temperature 97.7 F Pulse Rate 73 Respiratory Rate 18 Blood Pressure 125/83 Pulse Oximetry 97 Oxygen Delivery Method Room Air Oxygen Delivery Method Room Air Const General: No acute distress Resp Effort & Inspection: normal respiratory effort Assessment & Plan Assessment and plan (1) History of colon polyps: Status: Acute Plan We reviewed the risks and benefits of colonoscopy and he would like to proceed. Time-Based Coding :: [TOTAL MINUTES] spent with patient and on the chart (including review of chart, obtaining history, exam, reviewing outside data, placing orders, documenting exam and treatment plan, and counseling patient) on [DATE].
[2024-01-29 11:21] VITALS: BP 103/75; PULSE 71; RESP 14; TEMP 37.1; O2SAT 96
--- NOTE | 2024-01-29 11:21 | PM.OP.COLON ---
Operative Date/Time/Diagnoses Date of procedure: 01/29/24 Time of procedure: 11:22 Pre-op diagnosis: History of colon polyps Post-op diagnosis: same Procedure & Clinicians Study performed: Colonoscopy Same procedure as scheduled: Yes Surgeon: Brain Moreno Procedure Notes Procedure in detail: Surgeon: Brain Moreno MD Anesthesia: Shandra Rico CRNA Procedure: The patient was brought to the endoscopy suite, placed in left lateral decubitus position. The patient was connected to monitoring devices. A time-out was performed. Sedation was administered. Once the patient was adequately sedated, a digital rectal exam was performed and was normal. The scope was then inserted and advanced to the cecum where the appendiceal orifice was identified and photographed. The scope was then slowly withdrawn over greater than 6 minutes. The mucosa was thoroughly inspected. No abnormalities were identified. The scope was retroflexed in the rectum. No abnormalities were seen. The scope was straightened and removed. The patient was awakened and brought to recovery. Scope withdrawal time: 9 minutes Sedation time: 14 minutes EBL: 0 Findings: Normal colon Post-procedure Recommendations: Colonoscopy in 10 years Disposition: PACU
[2024-01-29 11:25] VITALS: BP 115/82; PULSE 73; RESP 15; O2SAT 98
[2024-01-29 11:31] VITALS: BP 114/87; PULSE 69; RESP 17; TEMP 36.7; O2SAT 95
== END 2024-01-29 11:38 | disposition home or self-care (01) ==
PROVIDERS: PCP Family Medicine; Referring Provider Surgery; Visit Provider Surgery
PROC: 0DJD8ZZ Inspection of Lower Intestinal Tract, Via Natural or Artificial Opening Endoscopic (ICD-10-PCS; CPT 45378; principal; 2024-01-29 10:30)
DX: Z12.11 Encounter for screening for malignant neoplasm of colon (principal); Z86.010 Personal history of colon polyps
CPT/HCPCS: 45378; J2704

== ENCOUNTER → 2024-05-25 09:13 | Outpatient (CLI) | payer OTHER, SELFPAY ==
[2024-05-25 10:10] LABS: Hemoglobin A1C% w Est Avg Glu 5.1 % (4.0-6.0)
[2024-05-25 10:46] LABS: Alanine Aminotransferase 56 IU/L (<50); Albumin 4.7 g/dL (3.5-5.0); Albumin Globulin Ratio 1.7 (1.0-2.8); Alkaline Phosphatase 51 U/L (38-126); Aspartate Aminotransferase 40 IU/L (17-59); Bilirubin Total 0.8 mg/dL (0.2-1.3); Blood Urea Nitrogen 16 mg/dL (9-20); Calcium 9.4 mg/dL (8.4-10.2); Carbon Dioxide 28 mmol/L (22-32); Chloride 104 mmol/L (98-107); Cholesterol 208 mg/dL (140-199); Estimated Glomerular Filt Rate > 60 mL/min (>60); Globulin 2.8 g/dL (1.7-4.1); Glucose 96 mg/dL (70-100); HDL Cholesterol 51 mg/dL (40-60); HEMOLYSIS < 15 (0-50); LDL Cholesterol Calculated 130 mg/dL (<100); Potassium 4.9 mmol/L (3.4-5.1); Sodium 139 mmol/L (137-145); Total Protein 7.5 g/dL (6.3-8.2); Triglycerides 135 mg/dL (35-150)
[2024-05-25 11:08] LABS: Prostate Specific Antigen 4.09 ng/mL (0.10-4.00)
== END ==
PROVIDERS: PCP Family Medicine; Referring Provider Family Medicine; Visit Provider Family Medicine
DX: E78.5 Hyperlipidemia, unspecified (principal); E66.9 Obesity, unspecified; R03.0 Elevated blood-pressure reading, without diagnosis of hypertension; Z86.0100 Personal history of colon polyps, unspecified
CPT/HCPCS: 36415; 80053; 80061; 83036; 84153

== ENCOUNTER → 2024-06-02 07:41 | Outpatient (CLI) | payer OTHER, SELFPAY ==
[2024-06-02 08:16] LABS: Add Manual Diff / Slide Review NO; Basophils Absolute Auto 0 /uL (0-100); Basophils Percent Auto 0.5 % (0-2); Eosinophils Absolute Auto 200 /uL (0-450); Eosinophils Percent Auto 2.1 % (2-4); Hematocrit 46.6 % (41-53); Hemoglobin 16.2 g/dL (13.5-17.5); Lymphocytes Absolute Auto 2400 /uL (1100-4500); Mean Corpuscular HGB Conc 34.8 % (30-36); Mean Corpuscular Hemoglobin 31.2 PG (26-34); Mean Corpuscular Volume 89.9 fL (80-100); Monocytes Absolute Auto 600 /uL (0-900); Monocytes Percent Auto 7.7 % (3-14); Neutrophils Absolute Auto 4400 /uL (1500-7000); Neutrophils Percent Auto 57.7 % (50-75); Platelet Count 208 X10^3/uL (150-400); Red Blood Cell Count 5.19 X10^6/uL (4.5-5.9); Red Cell Distribution Width 13.4 % (11.6-14.8); White Blood Cell Count 7.6 X10^3/uL (4.5-11.0)
[2024-06-02 09:06] LABS: Prostate Specific Antigen Scrn 3.88 ng/mL (0.1-4.0)
== END ==
PROVIDERS: PCP Family Medicine; Referring Provider Family Medicine; Visit Provider Family Medicine
DX: E66.9 Obesity, unspecified (principal); J45.909 Unspecified asthma, uncomplicated; E78.5 Hyperlipidemia, unspecified; Z12.5 Encounter for screening for malignant neoplasm of prostate
CPT/HCPCS: 36415; 85025; G0103